=== PATIENT | female | born 1940 | race Two or more races ===

== ENCOUNTER 2024-07-10 17:02 | Emergency (ER) | payer BC ==
[~2024-07-10] VITALS: Ht 152.4 cm; Wt 60.0 kg
[2024-07-10] MEDS: ACETAMINOPHEN 325 MG TAB PO ONE (18:00)
[2024-07-10 18:20] LABS: Anion Gap 8 (5-15); Carbon Dioxide 27 mmol/L (20-31); Chloride 105 mmol/L (98-107); Potassium 4.3 mmol/L (3.5-5.1); Sodium 140 mmol/L (136-145)
[2024-07-10 18:21] LABS: Calcium 10.4 mg/dL (8.7-10.4)
[2024-07-10 18:25] VITALS: PULSE 73; RESP 16; O2SAT 96
[2024-07-10 18:39] LABS: Basophils # (auto) 0.1 10 ^3/uL (0-0.2); Basophils % (auto) 0.7 % (0.0-2.0); Mean Corpuscular Volume 70.5 fL (80.0-100.0); Neutrophils # (auto) 7.9 10 ^3/uL (1.6-8.6); Nucleated Red Blood Cells % 0.1 %; White Blood Cell 10.3 10^3/uL (4.4-10.8)
[2024-07-10 18:40] LABS: Eosinophils # (auto) 0.2 10 ^3/uL (0-0.8); Eosinophils % (auto) 1.5 % (0.0-7.0); Hematocrit 39.9 % (36.0-46.0); Hemoglobin 12.5 g/dL (12.2-16.2); Lymphocytes # (auto) 1.6 10 ^3/uL (0.4-5.4); Lymphocytes % (auto) 15.3 % (10.0-50.0); Mean Corpuscular Hemoglobin 22.2 pg (28.0-32.0); Mean Corpuscular Hgb Conc. 31.4 g/dL (32.0-36.0); Monocytes # (auto) 0.6 10 ^3/uL (0-1.3); Monocytes % (auto) 5.9 % (0.0-12.0); Neutrophils % (auto) 76.6 % (37.0-80.0); Platelet Count (auto) 405 10^3/uL (140-450); Red Blood Cells 5.66 10^6/uL (4.0-5.20); Red Cell Distribution Width 16.5 % (11.8-14.3)
[2024-07-10] MEDS: SODIUM CHLORIDE 0.9% 500 ML IV ONE (18:50)
[2024-07-10 19:01] LABS: Blood Urea Nitrogen 38 mg/dL (9-23); Glucose 144 mg/dL (74-106)
--- NOTE | 2024-07-10 19:01 | DVH ---
CHEST RADIOGRAPH Indication: sob Technique: Single frontal view of the chest was obtained Comparison: None FINDINGS: Lines and Tubes: None Lungs: No focal consolidation. Pleura: No effusion. No pneumothorax. Cardiomediastinal contours: Unremarkable. Oevm-hz-[id number] atherosclerotic calcification and uncoili ng of the aorta. Bones: No acute osseous abnormality. IMPRESSION: No acute cardiopulmonary disease.
[2024-07-10 19:30] VITALS: PULSE 77; RESP 19; O2SAT 96
--- NOTE | 2024-07-10 19:47 | ECG ---
[facility] Test Date: 2024-07-10 Test Time: 19:46:29 Pat Name: MILAGRO MESA Department: ED Room: Gender: F Floor Coverings Installer: GREG : 1940 Requested By: JIMMY BROWN Order Number: [id number] Reading MD: Chidi Boen Measurements Intervals [place] Rate: 82 P: 64 [place]: 181 QRS: 147 QRSD: 131 T: 20 QT: 387 QTc: 452 Interpretive Statements Sinus rhythm RBBB and LPFB ST elevation, consider lateral injury Electronically Signed On 07-15-2024 8:51:36 PST by Chidi Bone Please click the below link to view image of tracing.
--- NOTE | 2024-07-10 20:15 | DVH ---
EXAM: CT HEAD WITHOUT CONTRAST INDICATION: dizziness TECHNIQUE: CT of the head without intravenous contrast. Radiation Dose Information: CT Dose: CTDI volume is 49.51 mGy. Dose-length product is 892.82 mGy*cm The dose indicators for CT are the volume Computed Tomography (CT) Dose Index (CTDIvol) and the Dose Length Product (DLP), and are measured in units of mGy and mGy-cm, respectively. These indicators are not patient dose, but values generated from the CT scanner acquisition factors. The report includes radiation exposure data for exposures received during this examination. COMPARISON: None FINDINGS: There is no evidence of acute intracranial hemorrhage, extra-axial collection, mass effect, midline s hift, herniation or hydrocephalus. The ventricles, sulci and cisterns are age appropriate. The flores-white differentiation is intact. Patchy periventricular and subcortical white matter hypoattenuation is nonspecific but may be related to small vessel ischemic disease. The visualized paranasal sinuses and mastoid air cells are clear. The surrounding soft tissues and osseous structures are unremarkable. IMPRESSION: 1. No acute intracranial hemorrhage. 2. No CT findings of territorial ischemia.
[2024-07-10 20:33] LABS: Urine Bacteria None Seen /hpf (None Seen)
[2024-07-10 21:00] VITALS: TEMP 98
[2024-07-10 21:15] LABS: Urine Blood Negative /uL (Negative); Urine Clarity Clear (Clear); Urine Color Light-Yellow (Yellow); Urine Protein, UAD Negative (Negative); Urine Specific Gravity 1.014 (1.001-1.035); Urine Urobilinogen Normal (Negative); Urine WBC 1 /hpf (0 - 5); Urine pH 6.5 (5.0-9.0)
--- NOTE | 2024-07-10 22:26 | DVH ---
History: dizziness Comparison Study: None available at time of dictation. TECHNIQUE: Multidetector CT of the chest, abdomen and pelvis was performed from lower neck to pubic s ymphysis without the use of intravenous contrast. Axial, coronal and sagittal multiplanar reformats w ere performed by the technologist on a separate workstation. Radiation Dose Information: CT Dose: CTDI volume is 6.7 mGy. Dose-length product is 447.62 mGy*cm FINDINGS: Lower neck: Normal thyroid. Lungs: No focal consolidation, suspicious pulmonary nodules or pulmonary masses. Heart/Vascular Structures: Normal heart size. Lymph Nodes: No adenopathy. Pleura: No pleural effusion or significant pneumothorax. Liver: The liver is normal in size. Non-contrast appearance of liver. Gallbladder and Biliary Tree: Unremarkable. Spleen: Unremarkable. Pancreas: Unremarkable. Adrenal Glands: Unremarkable. Kidneys: No renal calculi or hydronephrosis. Bladder: Unremarkable. Bowel: No bowel wall thickening or dilatation. The appendix is not visualized; however, no secondary findings of acute appendicitis identified. Peritoneum: No ascites or pneumoperitoneum. Lymphadenopathy: No enlarged lymph nodes. Vasculature: The visualized abdominal aorta is normal in size and caliber. Evaluation of the vascular structures is limited due to lack of intravenous contrast. Pelvic Organs: Unremarkable. Musculoskeletal: No acute osseous abnormality. Soft tissues: Unremarkable. IMPRESSION: 1. No acute finding involving chest, abdomen or pelvis. 2. All CT scans at this medical facility are performed using dose modulation techniques as appropriate to a performed exam including the following: Automated exposure control was utilized; adjustment of t he MA and/or KV according to patient size; and use of iterative reconstruction technique.
--- NOTE | 2024-07-10 22:39 | ED.PDOC ---
History of Present Illness HPI Comments 83-year-old female with past medical history of hypertension, hyperlipidemia , breast cancer status post mastectomy 2016 presented complaints of dizziness. Patient mentioned that around 1550 hours in the afternoon, patient started having sudden onset of dizziness associated with sweating and shortness of silver th. Patient sat down on the floor but never lost consciousness, patient's called EMS. According to EMS patient had blood pressure of 90/50 and started IV fluids. Patient's blood pressure on coming to the ED was 113/53. She denied any chest pain, nausea, vomiting, abdominal pain, fever, chills, generalized weakness. In the ED, pt mentioned about having dizziness. She mentioned she was recently at [facility] in apr with complaints of Bilateral hand swelling, her HR was low and was transferred to [place] for Pacemaker placement but hospital in [place] mentioned that she doesnt need pacemaker Past medical history Hypertension, hyperlipidemia Past surgical history Mastectomy, for breast cancer 2015, cholecystectomy Medication history Atorvastatin, amlodipine, lisinopril, furosemide, Social history Denied alcohol, smoking, marijuana or any other drug intake Family history Not contributory to the above illness Review of system As mentioned in the HPI Examination General Appearance: Alert, Oriented X3, Cooperative, No acute distress HEENT: EOMI Respiratory: Clear to auscultation, Normal air movement Cardiovascular: Regular rate, Normal S1, Normal S2 Abdominal: Normal bowel sounds Extremities: No cyanosis, No edema, Normal pulses, No tenderness/swelling Skin: No rashes, No breakdown Neuro: Normal speech and tone Chief Complaint: Syncope Time Seen by MD: 17:12 Primary Care Provider: JOVAN Allergies: Coded Allergies: Levofloxacin (Verified Allergy, Unknown, 07/10/24) Information Source: Patient, Spouse Mode of Arrival: EMS Differential Dx Considerations may include: benign paroxysmal positional vertigo, Meniere disease, vestibular neuritis, labyrinthitis, stroke, TIA, Sick sinus syndrome, sinus block, AV block X-Ray, Labs, Meds, VS Vital Signs Date Time Temp Pulse Resp B/P (MAP) Pulse Ox O2 Delivery O2 Flow Rate FiO2 07/10/24 23:17 119/44 (69) 07/10/24 23:13 116/41 (66) 07/10/24 23:11 122/51 (74) 07/10/24 23:00 80 13 126/50 (75) 95 07/10/24 21:00 98.0 84 20 130/41 (70) 95 98.0 07/10/24 19:46 82 07/10/24 19:30 77 19 96 Room Air* 0 21 07/10/24 19:30 77 19 127/52 (77) 96 07/10/24 18:25 73 16 96 Room Air* 0 21 07/10/24 18:25 98.1 73 15 121/36 (64) 96 98.1 07/10/24 17:10 98.4 69 18 113/53 (73) 96 07/10/24 17:08 71 Lab Test 07/10/24 19:33 07/10/24 18:00 Range/Units Urine Color Light-yellow Yellow Urine Clarity Clear Clear Urine pH 6.5 5.0-9.0 Urine Specific [place] 1.014 1.001-1.035 Urine Protein Negative Negative Urine Ketones Negative Negative Urine Blood Negative Negative /uL Urine Nitrite Negative Negative Urine Bilirubin Negative Negative Urine Urobilinogen Normal Negative mg/dL Urine Leukocyte Esterase Negative Negative /uL Urine RBC 1 0 - 4 /hpf Urine WBC 1 0 - 5 /hpf Urine Squamous Epithelial Cells Few <5 /hpf Urine Bacteria None seen None Seen /hpf Urine Glucose Normal Normal mg/dL White Blood Count 10.3 4.4-10.8 10^3/uL Red Blood Count 5.66 H 4.0-5.20 10^6/uL Hemoglobin 12.5 12.2-16.2 g/dL Hematocrit 39.9 36.0-46.0 % Mean Corpuscular Volume 70.5 L 80.0-100.0 fL Mean Corpuscular Hemoglobin 22.2 L 28.0-32.0 pg Mean Corpuscular Hemoglobin Concent 31.4 L 32.0-36.0 g/dL Red Cell Distribution Width 16.5 H 11.8-14.3 % Platelet Count 405 140-450 10^3/uL Mean Platelet Volume 6.9 6.9-10.8 fL Neutrophils (%) (Auto) 76.6 37.0-80.0 % Lymphocytes (%) (Auto) 15.3 10.0-50.0 % Monocytes (%) (Auto) 5.9 0.0-12.0 % Eosinophils (%) (Auto) 1.5 0.0-7.0 % Basophils (%) (Auto) 0.7 0.0-2.0 % Neutrophils # (Auto) 7.9 1.6-8.6 10 ^3/uL Lymphocytes # (Auto) 1.6 0.4-5.4 10 ^3/uL Monocytes # (Auto) 0.6 0-1.3 10 ^3/uL Eosinophils # (Auto) 0.2 0-0.8 10 ^3/uL Basophils # (Auto) 0.1 0-0.2 10 ^3/uL Nucleated Red Blood Cells 0.1 % Sodium Level 140 136-145 mmol/L Potassium Level 4.3 3.5-5.1 mmol/L Chloride Level 105 98-107 mmol/L Carbon Dioxide Level 27 20-31 mmol/L Anion Gap 8 5-15 Blood Urea Nitrogen 38 H 9-23 mg/dL Creatinine 1.90 H 0.550-1.02 mg/dL Glomerular Filtration Rate Calc 26 >90 mL/min BUN/Creatinine Ratio 20.0 10.0-20.0 Serum Glucose 144 H 74-106 mg/dL Calcium Level 10.4 8.7-10.4 mg/dL Troponin I High Sensitivity 8 </=34 ng/L Current Medications Medications (Trade) Dose Ordered Sig/Mao Route Start Time Stop Time Status Last Admin Sodium Chloride 500 ml @ 500 mls/hr Q1H ONCE IV 07/10/24 18:00 07/10/24 18:59 DC 07/10/24 18:50 Sodium Chloride 1,000 ml @ 100 mls/hr Q10H ONCE IV 07/10/24 23:00 07/11/24 08:59 07/10/24 23:31 Time of 1ST Reevaluation: 19:41 (pt still mentions of dizziness) Reevaluation 1ST: Unchanged Time of 2ND Reevaluation: 21:40 (pt still mentions of dizziness both on lying down and standing. Talked to Dr Harrison regarding admission, Dr Harrison asked us to order CT chest/abd/pelvis without contrast and mentioned that she will decide after the results of CT scan to admit the pt or not. ) Reevaluation 2ND: Unchanged Time of 3RD Reevaluation: 23:36 (pt mentioned no dizziness and on lying down and standing up. Pt BP on lying down 122/51, 116/41 on sitting and 119/44 on standing. Talked to Dr Harrison over the phone. She mentioned that she will discharge the patient. ) Reevaluation 3RD: Unchanged Patient Education/Counseling: Diagnosis, Treatment Family Education/Counseling: Diagnosis, Treatment Comments pt presented with the complaints of Dizziness, Shortness of breath, sweating. Workup was initiated. Pt was given IV fluids. urine analysis was WNL. Head CT didnt show any acute abnormalities. pt was still feeling dizziness. pt was put for admission orders. Talked to Dr Harrison regarding admission, Dr Harrison asked us to order CT chest/abd/pelvis without contrast and mentioned that she will decide after the results of CT scan to admit the pt or not. CT chest/abd/pelvis showed No acute finding involving chest, abdomen or pelvis. later on reevaluation, pt did not mention of dizziness. pt mentioned no dizziness and on lying down and standing up. Pt BP on lying down 122/51, 116/41 on sitting and 119/44 on standing. As per recommendation from the Admitting Team, pt will be discharged to home Discharge instructions per Dr Harrison Departure 1 Departure Time of Disposition: 21:40 Impression: Primary Impression: Pre-syncope Additional Impression: Dizziness Disposition: 01 HOME / SELF CARE / HOMELESS Admit to: Tele Condition: Stable (as per admitting physician) Additional Instructions: Discharge instructions per JIMMY Case RESIDENT Jul 10, 2024 22:39
[2024-07-10 23:00] VITALS: PULSE 80; RESP 13; O2SAT 95
[2024-07-10] MEDS ORDERED: MORPHINE SULFATE INJ 2 MG/ml SYRG IV PRN (23:00)
[2024-07-10] MEDS ORDERED: NITROGLYCERIN 0.4 MG SL TAB SL PRN (23:00)
[2024-07-10 23:17] VITALS: BP 119/44
[2024-07-10] MEDS: SOD CHL 0.45% 1,000 ML IV ONE (23:31)
--- NOTE | 2024-07-11 20:01 | DVHDS2 ---
Physician Discharge Progress N Final Diagnosis: benign positional vertigo, dehydration Operations or Procedures: Operations or Procedures none Other Interventions Other Interventions Lab results, EKG, CXR, CT head, chest, abdomen Consultations: Consultations none Commentary: Commentary 83 y.o. female with HTN, dyslipidemia was brought to the ED c/o dizziness that started a few hours prior to arrival. It was associated with SOB and perspirations. EMS reported her BP being 90/50 at the scene. EMS started IVF. On arrival to the ED her BP was 113/53. Patient c/o dizziness but denied any other symptoms. Patient received another bolus of IVF in the ED. Her labs results were unremarkable, CT, CXR and EKG showed no acute findings. Orthostatic vital sings were checked 3 times. The tests were negative. Patient stated she didn't have dizziness anymore. SHe was discharged home and instructed to follow up with cardiology and ENT appointments that would be scheduled by [facility]. Condition on Discharge: Stable Disposition: Home SNF Discharge Will this Physician continue t: No Discharge Instructions: Diet: Regular Activity: No Restrictions, As Tolerated Follow Up/Referral: Cardiology and ENT appointments will be scheduled by [facility] medical management and coordinated with the patient Medications: Continue home medications Follow Up Care: Discharge Statement: "Patient was advised to return to the ER or call 911 if any headaches, dizziness, shortness of breath, chest pain, abdominal pain, bleeding, fevers, or worsening of medical condition. Patient was counseled about treatment plan, medications, possible side effects, patientverbalized understanding. All questions were answered to the best of my ability. This discharge took greater then 30 minutes in planning, reviewing documentation, counseling the patient, and discussing with other team members." EDIS RAINES MD Jul 11, 2024 20:01
--- NOTE | 2024-07-15 14:44 | ECG ---
[facility] Test Date: 2024-07-10 Test Time: 17:08:41 Pat Name: MILAGRO MESA Department: er Room: Gender: F Research Scientist: gp : 1940 Requested By: JIMMY BROWN Order Number: [id number] Reading MD: Measurements Intervals [place] Rate: 71 P: 31 NC: 182 QRS: 5 QRSD: 128 T: 24 QT: 399 QTc: 434 Interpretive Statements Sinus rhythm Probable left atrial enlargement Right bundle branch block ST elevation suggests acute pericarditis Artifact in lead(s) II,III,aVR,aVL,aVF Please click the below link to view image of tracing.
== END 2024-07-10 23:55 | disposition home or self-care (01) ==
LOC: EDBD 17:02 → ER 17:14
DX: R55 Syncope and collapse (principal); E86.0 Dehydration; H81.10 Benign paroxysmal vertigo, unspecified ear; M79.89 Other specified soft tissue disorders; E78.5 Hyperlipidemia, unspecified; I10 Essential (primary) hypertension; Z85.3 Personal history of malignant neoplasm of breast; Z88.1 Allergy status to other antibiotic agents; Z90.49 Acquired absence of other specified parts of digestive tract; Z95.0 Presence of cardiac pacemaker
CPT/HCPCS: 36415; 70450; 71045; 71250; 74176; 80048; 81001; 84484; 85025; 93005; 96360; 99285; J7030; J7040